=== PATIENT | male | born 1965 | race Caucasian/White ===

== ENCOUNTER 2017-10-20 08:30 | Inpatient (IN) | payer OTHER ==
[~2017-10-20] VITALS: Ht 172.7 cm; Wt 68.0 kg
[2017-10-27] MEDS ORDERED: OMEPRAZOLE20 M1 PO (08:11)
[2017-10-27] MEDS ORDERED: PROBIOTIC & AC1 EACH PO (08:11)
[2017-10-27] MEDS ORDERED: PERCOCET 5-3251 EACH PO (08:11)
== END 2017-10-27 10:05 | disposition home or self-care (01) | DRG 331 ==
LOC: EDSTATUS 08:30 → ADM 08:30 → SURG 10-24 06:39 → O/R 10-24 06:39 → SURH 10-24 08:30 → SURG 10-24 20:37
PROVIDERS: Surgery
PROC: 0DJD8ZZ Inspection of Lower Intestinal Tract, Via Natural or Artificial Opening Endoscopic (ICD-10-PCS; 2017-10-24)
PROC: 0DTN4ZZ Resection of Sigmoid Colon, Percutaneous Endoscopic Approach (ICD-10-PCS; principal; 2017-10-24 12:00)
DX: K57.32 Diverticulitis of large intestine without perforation or abscess without bleeding (principal)

== ENCOUNTER 2018-10-22 07:32 | Day surgery (SDC) | payer OTHER ==
[~2018-10-22 07:32] MED LIST: OMEPRAZOLE20 M1 PO; PERCOCET 5-3251 EACH PO; PROBIOTIC & AC1 EACH PO
== END 2018-10-22 11:53 | disposition home or self-care (01) ==
LOC: AMB-ENDOS 07:32
DX: K57.30 Diverticulosis of large intestine without perforation or abscess without bleeding (principal); K64.1 Second degree hemorrhoids